=== PATIENT | female | born 2000 | race Caucasian/White ===

== ENCOUNTER 2024-11-23 10:22 | Observation (INO) ==
[2024-11-23] MEDS: Albuterol HFA INHALER 8 gm MDI INH ONE (13:57)
[2024-11-23] MEDS: Amoxicillin/Clavul 875/125 TAB (Augmentin 875 tab) PO ONE (14:47)
[2024-11-23 14:50] LABS: ABS Eosinophils 0.5 10^3/uL (0.0-0.5); ABS Lymphocytes 1.7 10^3/uL (1.0-4.8); ABS Monocytes 0.5 10^3/uL (0.0-0.9); ABS Neutrophils 2.1 10^3/uL (1.5-7.6); ABS Nucleated RBC 0.01 10^3/ul; Eosinophil % 9.7 %; Hematocrit 37.1 % (35-45); Hemoglobin 12.3 g/dL (11.5-14.3); Lymphocyte % 35.5 %; Mean Corpuscular Hemoglobin 27.7 pg (27-33); Mean Corpuscular Hgb Conc 33.2 g/dL (31-36); Mean Corpuscular Volume 83.6 fL (80-97); Mean Platelet Volume 8.1 fL (7.5-11.2); Nucleated Red Blood Cells % 0.2 %/100WBC (0.0-0.8); Platelet Count 286 10^3/uL (150-450); Red Blood Count 4.44 10^6/uL (3.63-4.92); Red Cell Distribution Width 15.1 % (12-17); White Blood Count 4.9 10^3/uL (3.8-11.8)
[2024-11-23 15:16] LABS: High Sens Troponin Baseline < 3 pg/mL (<15); INR 1.11 (0.85-1.14)
[2024-11-23 15:18] LABS: ALT 14 U/L (7-52); AST 13 U/L (13-39); Albumin 4.2 g/dL (3.5-5.7); Albumin/Globulin Ratio 1.2 (1-3); Alkaline Phosphatase 51 U/L (35-149); Anion Gap 6 mmol/L (2-16); Blood Urea Nitrogen 9 mg/dL (6-24); CO2 Carbon Dioxide 28 mmol/L (22-32); Calcium 9.1 mg/dL (8.6-10.3); Chloride 105 mmol/L (101-111); Creatinine, Serum 0.84 mg/dL (0.51-0.95); Globulin 3.4 g/dL (2-4); Glucose 91 mg/dL (70-100); Potassium 4.2 mmol/L (3.5-5.0); Sodium 139 mmol/L (135-145); Total Bilirubin 0.4 mg/dL (0.2-1.0); Total Protein 7.6 g/dL (6.4-8.9); eGFR CKD-EPI 98.2 (>60)
[2024-11-23 15:25] LABS: HCG Pregnancy < 0.60 mIU/mL
[2024-11-23] MEDS: Lactated Ringers 1000 ml BAG 1,000 ML IV ONE (15:46)
[2024-11-23 16:39] LABS: High Sensitivity Troponin 1 Hr < 3 pg/mL (<15)
[2024-11-23] MEDS: Iohexol 350 (CONTRAST) 500 ML MDV IV ONE (17:22)
[2024-11-23] MEDS ORDERED: Sulfur Hexaflouride MICROSPHR 25 MG VIAL IV PRN ×2 (21:10→22:45)
[2024-11-23] MEDS ORDERED: Albuterol HFA INHALER 8 gm MDI INH PRN (22:51)
[2024-11-24] MEDS: cefTRIAXone 1 gm/50 mL D5W 1 GM/50 ML BAG IV SCH ×2 (02:21→02:22)
[2024-11-24] MEDS: Azithromycin 500 mg/250 ml NS 500 MG/250 ML BAG IVPB SCH (14:11)
[2024-11-24 14:28] VITALS: BP 126/75
== END 2024-11-24 18:30 | disposition home or self-care (01) ==
LOC: ED 10:22 → EDHOLD 21:06 → INTOOBSV 21:06 → MED 11-24 00:18
PROVIDERS: ADMIT Internal Medicine; ATTEND Student in an Organized Health Care Education/Training Program